=== PATIENT | female | born 1980 | race American Indian/Alaskan Native ===

== ENCOUNTER 2018-12-13 16:25 | Emergency (ER) | payer MEDICAID, OTHER ==
--- NOTE | 2018-12-13 16:31 | Emergency Department Report ---
Blank Doc - Documentation Documentation: This is a 38-year-old female that presents with constipation. Stated has decr eased activity level and history of anemia. This initial assessment/diagnostic orders/clinical plan/treatment(s) is/are subject to change based on patient's health status, clinical progression and re- assessment by fellow clinical providers in the ED. Further treatment and workup at subsequent clinical providers discretion. Patient/guardians urged not to elope from the ED as their condition may be serious if not clinically assessed and managed. Initial orders include: 1- Patient sent to [facility] for further evaluation and treatment 2- labs 3- xray
[2018-12-13 17:43] LABS: BUN/Creatinine Ratio 18; Blood Urea Nitrogen 11 mg/dL (7-17)
[2018-12-13 17:44] LABS: Calcium 8.8 mg/dL (8.4-10.2); Hemolysis Index 20
[2018-12-13 17:51] LABS: Mean Corpuscular HGB Conc 28 % (30-34); Platelet Count 404 K/mm3 (140-440); Red Blood Count 3.43 M/mm3 (3.65-5.03); Red Cell Distribution Width 19.3 % (13.2-15.2)
[2018-12-13 17:54] LABS: Hemoglobin 5.6 gm/dl (10.1-14.3)
[2018-12-13 17:55] LABS: Hematocrit 20.1 % (30.3-42.9); Mean Corpuscular Volume 59 fl (79-97)
[2018-12-13 17:56] LABS: Basophils % (Auto) 0.4 % (0.0-1.8); Eosinophils % (Auto) 0.8 % (0.0-4.3); Lymphocytes # (Auto) 1.4 K/mm3 (1.2-5.4); Monocytes # (Auto) 0.2 K/mm3 (0.0-0.8); Monocytes % (Auto) 3.5 % (0.0-7.3)
[2018-12-13] MEDS ORDERED: NACL 0.9% 500 ML 500 ML IV ONE (18:17)
--- NOTE | 2018-12-13 18:18 | Emergency Department Report ---
ED General Adult HPI - General Chief complaint: Medical Clearance Stated complaint: COUGH/CONSTIPATION Time Seen by Provider: 12/13/18 16:30 Source: patient, RN notes reviewed, old records reviewed Mode of arrival: Ambulatory Limitations: No Limitations - History of Present Illness Initial comments: This is a 38-year-old. The patient is not known to this provider previously. She does not have a local primary care doctor. She does not have a hematol ogist. Her past medical history includes hypertension, chronic anemia, gastric bypass Patient presents to the emergency room with a primary complaint of constipation. This is painless basically. Dentition present for a day or so. There is no relief with [id number] enemas. Patient denies nausea, vomiting, chest pain. She denies headache. Patient endorses secondary complaints, including dry cough, heart palpitations, feeling slightly fatigued, feels like her blood counts are low. She denies hematemesis, bright red blood per rectum, vaginal bleeding. She is taking intermittent multivitamins, not currently taking iron sulfate supplementation, and is reportedly not taking the multivitamins that are typical for patient to have a history of gastric bypass surgery. -: Gradual Severity scale (0 -10): 7 Consistency: constant Improves with: none Worsens with: none Associated Symptoms: cough, shortness of breath. denies: confusion, chest pain, diaphoresis, fever/chills, headaches, loss of appetite, malaise, seizure, syncope, weakness - Related Data Home Medications Medication Instructions Recorded Confirmed Last Taken Lisinopril/Hydrochlorothiazide 12.5 - 20 tab PO QDAY 07/19/13 01/30/16 07/19/13 19:39 [Zestoretic 20-12.5 mg] 20/12.5 mg Previous Rx's Medication Instructions Recorded Last Taken Type Ferrous Sulfate [Feosol 325 MG tab] 325 mg PO BID #60 tablet 07/20/13 Unknown Rx Folic Acid [Folvite] 1 mg PO QDAY #30 tablet 07/20/13 Unknown Rx Ciprofloxacin HCl [Ciprofloxacin 500 mg PO Q12H #10 tab 01/31/16 Unknown Rx TAB] metroNIDAZOLE [Flagyl TAB] 500 mg PO Q8HR #14 tablet 01/31/16 Unknown Rx Amlodipine Besylate [Norvasc] 5 mg PO QDAY 2 Days #30 tablet 12/13/18 Unknown Rx Cyanocobalamin (Vitamin B-12) 500 mcg PO QDAY #30 tablet 12/13/18 Unknown Rx [Vitamin B-12] Ferrous Sulfate [Feosol 325 MG tab] 325 mg PO BID #60 tablet 12/13/18 Unknown Rx Folic Acid 0.4 mg PO QDAY #30 tablet 12/13/18 Unknown Rx Lisinopril 20 mg PO QDAY #30 tablet 12/13/18 Unknown Rx Multivitamin [Multiple Vitamins] 1 each PO QDAY #30 tablet 12/13/18 Unknown Rx Psyllium Husk [Psyllium Seed] 10 gm PO BID #1 powder 12/13/18 Unknown Rx Thiamine [Vitamin B-1] 100 mg PO QDAY #30 tablet 12/13/18 Unknown Rx Allergies Allergy/AdvReac Type Severity Reaction Status Date / Time No Known Allergies Allergy Verified 07/19/13 19:39 ED Review of Systems ROS: Stated complaint: COUGH/CONSTIPATION Other details as noted in HPI Constitutional: malaise. denies: fever Eyes: denies: vision change ENT: congestion Respiratory: cough, shortness of breath Cardiovascular: palpitations. denies: chest pain Gastrointestinal: abdominal pain, constipation. denies: nausea, hematemesis, melena, hematochezia Genitourinary: denies: as per HPI, abnormal menses Skin: denies: lesions Neurological: weakness Psychiatric: denies: anxiety ED Past Medical Hx - Past Medical History Hx Hypertension: Yes Additional medical history: Anemia - Surgical History Past Surgical History?: Yes Additional Surgical History: Gastric bypass - Social History Smoking Status: Never Smoker Substance Use Type: None - Medications Home Medications: Home Medications Medication Instructions Recorded Confirmed Last Taken Type Lisinopril/Hydrochlorothiazide 12.5 - 20 tab PO QDAY 07/19/13 01/30/16 07/19/13 19:39 History [Zestoretic 20-12.5 mg] 20/12.5 mg Ferrous Sulfate [Feosol 325 MG tab] 325 mg PO BID #60 tablet 07/20/13 01/30/16 Unknown Rx Folic Acid [Folvite] 1 mg PO QDAY #30 tablet 07/20/13 01/30/16 Unknown Rx Ciprofloxacin HCl [Ciprofloxacin 500 mg PO Q12H #10 tab 01/31/16 Unknown Rx TAB] metroNIDAZOLE [Flagyl TAB] 500 mg PO Q8HR #14 tablet 01/31/16 Unknown Rx Amlodipine Besylate [Norvasc] 5 mg PO QDAY 2 Days #30 tablet 12/13/18 Unknown Rx Cyanocobalamin (Vitamin B-12) 500 mcg PO QDAY #30 tablet 12/13/18 Unknown Rx [Vitamin B-12] Ferrous Sulfate [Feosol 325 MG tab] 325 mg PO BID #60 tablet 12/13/18 Unknown Rx Folic Acid 0.4 mg PO QDAY #30 tablet 12/13/18 Unknown Rx Lisinopril 20 mg PO QDAY #30 tablet 12/13/18 Unknown Rx Multivitamin [Multiple Vitamins] 1 each PO QDAY #30 tablet 12/13/18 Unknown Rx Psyllium Husk [Psyllium Seed] 10 gm PO BID #1 powder 12/13/18 Unknown Rx Thiamine [Vitamin B-1] 100 mg PO QDAY #30 tablet 12/13/18 Unknown Rx ED Physical Exam - General Limitations: No Limitations General appearance: alert, in no apparent distress - Head Head exam: Present: atraumatic, normocephalic - Eye Eye exam: Present: normal appearance, EOMI, other (conjunctiva noted to be mildly pale). Absent: nystagmus - ENT ENT exam: Present: normal exam, normal orophraynx, mucous membranes moist, normal external ear exam - Neck Neck exam: Present: normal inspection, full ROM. Absent: tenderness, meningismus - Respiratory Respiratory exam: Present: normal lung sounds bilaterally. Absent: respiratory distress - Cardiovascular Cardiovascular Exam: Present: regular rate, normal rhythm, normal heart sounds. Absent: bradycardia, tachycardia, irregular rhythm, systolic murmur, diastolic murmur, rubs, gallop - GI/Abdominal GI/Abdominal exam: Present: soft. Absent: distended, tenderness, guarding, rebound, rigid, pulsatile mass - Extremities Exam Extremities exam: Present: normal inspection, full ROM, other (2+ pulses noted in the bilateral upper, lower extremities. Compartments soft. No long bony tenderness. The pelvis is stable.). Absent: pedal edema, joint swelling, calf tenderness - Back Exam Back exam: Present: normal inspection, full ROM. Absent: tenderness, CVA tenderness (R), paraspinal tenderness, vertebral tenderness - Neurological Exam Neurological exam: Present: alert, oriented X3, CN II-XII intact, normal gait, other (Extraocular movements intact. Tongue midline. No facial droop. Facial sensation intact to light touch in the V1, V2, V3 distribution bilaterally. 5 and 5 strength in 4 extremities.. Sensation is intact to light touch in 4 extremities.). Absent: motor sensory deficit - Psychiatric Psychiatric exam: Present: normal affect, normal mood, anxious - Skin Skin exam: Present: warm, dry, intact, normal color. Absent: rash ED Course Vital Signs 12/13/18 12/13/18 12/13/18 16:30 19:41 21:07 Temperature 98.7 F 98.5 F Pulse Rate 82 76 Respiratory 18 18 20 Rate Blood Pressure 166/87 Blood Pressure 181/82 [Right] O2 Sat by Pulse 100 100 Oximetry 12/13/18 12/13/18 12/13/18 21:15 21:40 22:37 Temperature 98.5 F 98.5 F 99.1 F Pulse Rate 78 74 62 Respiratory 20 20 18 Rate Blood Pressure 185/92 175/98 155/77 Blood Pressure 185/92 [Right] O2 Sat by Pulse 100 100 100 Oximetry 12/13/18 12/14/18 12/14/18 23:40 00:03 00:32 Temperature 99.1 F 99.2 F 98.9 F Pulse Rate 68 73 66 Respiratory 18 18 18 Rate Blood Pressure 175/84 169/73 156/92 Blood Pressure [Right] O2 Sat by Pulse 100 100 99 Oximetry - Reevaluation(s) Reevaluation #1: 12/13/18 19:25 Differential diagnosis, including but not limited to: Constipation, obstruction, symptomatic anemia, bronchitis Assessment and plan: 38-year-old female who currently does not have a primary care doctor, does not follow up with her bariatric surgeon, does not currently have a green building engineer with multiple outpatient primary care related complaints. Complaint #1; constipation. Patient is afebrile with reassuring vital signs within nontender abdomen. X-ray of her abdomen suggests nonspecific bowel gas pattern, colonic distention, questionable air-fluid levels. Suspect constipation, but given history of gastric bypass, we will obtain CT scan of the abdomen and pelvis with IV, oral contrast. Extensive discussion had with patient regarding need for diet and lifestyle modifications, fiber and water consumption, and need to follow up with an outpa tient primary care doctor, and/or her bariatric surgeon. Complaint #2; symptomatic anemia. Patient has had this in the past. She is amenable to packed red blood cell transfusion. Denies hematemesis, bright red blood per rectum, rectal bleeding. We'll give the patient 2 units of packed red blood cells. She will be discharged with iron sulfate supplementation, diet last modification instructio zach, and she will be discharged with appropriate vitamin supplementation given her history of gastric bypass. Complaint #3; bronchitis. Lung sounds are clear, x-ray chest unremarkable, supportive, symptomatic management. Does not appear to represent emergent condition at this time. Reevaluation #2: 12/13/18 19:53 Care will be transferred to the overnight physician, Dr. Martinez, to follow up on CT scan of the abdomen and pelvis. Reevaluation #3: 12/13/18 20:19 Care is transferred to Dr. Martinez to follow up on CT scan and reassess for final disposition. If constipated, oral contrast should help out with constipation symptoms. ED Medical Decision Making - Lab Data Result diagrams: 12/13/18 17:01 12/13/18 17:01 Vital Signs 12/13/18 16:30 Temperature 98.7 F Pulse Rate 82 Respiratory 18 Rate Blood Pressure 166/87 O2 Sat by Pulse 100 Oximetry Lab Results 12/13/18 12/13/18 12/13/18 Range/Units 17:01 17:01 17:01 WBC 6.5 (4.5-11.0) K/mm3 RBC 3.43 L (3.65-5.03) M/mm3 Hgb 5.6 L* (10.1-14.3) gm/dl Hct 20.1 L (30.3-42.9) % MCV 59 L (79-97) fl MCH 17 L (28-32) pg MCHC 28 L (30-34) % RDW 19.3 H (13.2-15.2) % Plt Count 404 (140-440) K/mm3 Lymph % (Auto) 21.0 (13.4-35.0) % Sac % (Auto) 3.5 (0.0-7.3) % Eos % (Auto) 0.8 (0.0-4.3) % Baso % (Auto) 0.4 (0.0-1.8) % Lymph # 1.4 (1.2-5.4) K/mm3 Sac # 0.2 (0.0-0.8) K/mm3 Eos # 0.0 (0.0-0.4) K/mm3 Baso # 0.0 (0.0-0.1) K/mm3 Seg Neutrophils % 74.3 H (40.0-70.0) % Seg Neutrophils # 4.8 (1.8-7.7) K/mm3 Sodium 138 (137-145) mmol/L Potassium 3.9 (3.6-5.0) mmol/L Chloride 102.7 (98-107) mmol/L Carbon Dioxide 24 (22-30) mmol/L Anion Gap 15 mmol/L BUN 11 (7-17) mg/dL Creatinine 0.6 L (0.7-1.2) mg/dL Estimated GFR > 60 ml/min BUN/Creatinine Ratio 18 % Glucose 90 (65-100) mg/dL Calcium 8.8 (8.4-10.2) mg/dL HCG, Qual Negative (Negative) - EKG Data -: EKG Interpreted by Me EKG shows normal: sinus rhythm Rate: normal - EKG Data 12/13/18 19:38 Sinus, 88 bpm, normal axis, QTC prolonged, atrial enlargement, or High left ventricular voltage, abnormal EKG, not having chest pain, not consistent with ST elevation myocardial infarction. - Radiology Data Radiology results: report reviewed, image reviewed interpreted by me: X-ray the chest is negative for acute disease. X-ray of the abdomen and pelvis suggests constipation, nonspecific bowel gas pattern, questionable air-fluid levels - Medical Decision Making Print Report Referring Physician: PRISCILLA VASQUEZ Patient Name: VILMA LAMAS Date of : 1980 Sex: Female Report Date: 2018-12-13 Report Status: Finalized Findings [facility] [address] [place] [address] Cat Scan Report Signed Patient: VILMA LAMAS MR#: [id number] : 1980 Acct:[id number] Age/Sex: 38 / F ADM Date: 12/13/18 Loc: ED Attending Dr: Ordering Physician: PRISCILLA VASQUEZ MD Date of Service: 12/13/18 Procedure(s): CT abdomen pelvis w con Accession Number(s): [id number] cc: PRISCILLA VASQUEZ MD PROCEDURE: CT ABDOMEN PELVIS W CON TECHNIQUE: Computerized axial tomography of the abdomen and pelvis was performed after the IV injection of iodinated nonionic contrast. CT DOSE LENGTH PRODUCT: mGycm HISTORY: constipation, hx of gastric bypass COMPARISONS: None . FINDINGS: Visualized lower thorax: No significant abnormality. Liver: Normal size and attenuation. Spleen: Normal size and attenuation. Gallbladder and biliary system: Normal. Pancreas: Normal. Adrenals: Normal. Kidneys: Normal. GI tract: There has been gastric bypass surgery. There is no bowel obstruction, colitis or enteritis. There is a large amount of stool in the colon. The appendix is normal. There is an umbilical hernia containing bowel without specific evidence of incarceration. . Lymph nodes and mesentery: Normal. Vasculature: Normal.. Bladder: Normal. Reproductive organs: Normal. Peritoneum: There is no ascites or free air, abscess or adenopathy.. Musculoskeletal structures: No significant abnormality. IMPRESSION: There has been gastric bypass surgery. There is no bowel obstruction, colitis or enteritis. There is a large amount of stool in the colon. The appendix is normal. There is an umbilical hernia containing bowel without specific evidence of incarceration. . There is no ascites or free air, abscess or adenopathy.. . This document is electronically signed by Naseem Diaz MD., December 14 2018 12:32:22 AM ET Transcribed By: CO Dictated By: NASEEM DIAZ MD Electronically Authenticated By: NASEEM DIAZ MD Signed Date/Time: 12/14/18 0034 Critical care attestation.: If time is entered above; I have spent that time in minutes in the direct care of this critically ill patient, excluding procedure time. ED Disposition Clinical Impression: Anemia, Medication refill, Constipation Disposition: DC-01 TO HOME OR SELFCARE Is pt being admited?: No Does the pt Need Aspirin: No Condition: Good Instructions: Constipation (ED), High Fiber Diet (ED), Iron Rich Diet (ED), Anemia (ED) Additional Instructions: Increased water consumption to 6 cups of water per day. Eat plenty of fruits, fibers, vegetables. Symptoms of constipation will likely take weeks to months to improve. Follow-up with a primary care doctor or your bariatric surgeon within the next 2 weeks for further evaluation and outpatient management of constipation. Take the prescribed vitamin supplementation as directed, and follow up with your primary care provider, or bariatric surgeon for outpatient nutritional management. foods high in fiber include: Fruits Apple (with skin) 3.5/1 medium-sized apple Apricot (fresh) 1.8/3 apricots Banana 2.5/1 banana Cantaloupe 2.7/half edible portion Dates 13.5/1 cup (chopped) Grapefruit 1.6/half edible portion Grapes 2.6/10 grapes Oranges 2.6/[address] [place] (with skin) 2.1/1 peach Pear (with skin) 4.6/1 pear Pineapple 2.2/1 cup (diced) Prunes 11.9/11 dried prunes Raisins 2.2/packet Strawberries 3.0/1 cup Juices Apple 0.74/1 cup Grapefruit 1.0/1 cup Grape 1.3/1 cup [place] 1.0/1 cup Vegetables Cooked Asparagus 1.5/7 lucas Beans, string, green 3.4/1 cup Broccoli 5.0/1 stalk [place] sprouts 4.6/7-8 sprouts Cabbage 2.9/1 cup (cooked) Carrots 4.6/1 cup Cauliflower 2.1/1 cup Peas 7.2/1 cup (cooked) Potato (with skin) 2.3/1 boiled Spinach 4.1/1 cup (raw) Squash, summer 3.4/1 cup (cooked, diced) Sweet potatoes 2.7/1 baked Zucchini 4.2/1 cup (cooked, diced) Raw [place] 0.2/6-8 slices with skin Lettuce 2.0/1 wedge iceberg Mushrooms 0.8/half cup (sliced) Onions 1.3/1 cup Peppers, green 1.0/1 pod Tomato 1.8/1 tomato Spinach 8.0/1 cup (chopped) Legumes Baked beans 18.6/1 cup Dried peas 4.7/half cup (cooked) Kidney beans 7.4/half cup (cooked) [place] beans 2.6/half cup (cooked) Lentils 1.9/half cup (cooked) Breads, pastas, and flours Bagels 1.1/half bagel Bran muffins 6.3/muffin Cracked wheat 4.1/slice Oatmeal 5.3/1 cup Pumpernickel bread 1.0/slice White bread 0.55/slice Whole-wheat bread 1.66/slice Pasta and rice cooked Macaroni 1.0/1 cup (cooked) Rice, brown 2.4/1 cup (cooked) Rice, polished 0.6/1 cup (cooked) Spaghetti (regular) 1.0/1 cup (cooked) Flours and grains Bran, oat 8.3/oz Bran, wheat 12.4/oz Rolled oats 13.7/1 cup (cooked) Nuts Almonds 3.6/half cup (slivered) Peanuts 11.7/1 cup Take iron sulfate supplementation as directed, and follow up with the primary care doctor, or hematology doctor for evaluation for outpatient iron transfusions. one local coding support specialist is Dr. Hoffman Please return to the emergency room right away with new, worse or different symptoms, productive vomiting, change in mental status, confusion, new, worsening or different symptoms. Prescriptions: Ferrous Sulfate [Feosol 325 MG tab] 325 mg PO BID #60 tablet Folic Acid 0.4 mg PO QDAY #30 tablet Lisinopril 20 mg PO QDAY #30 tablet Multivitamin [Multiple Vitamins] 1 each PO QDAY #30 tablet Amlodipine Besylate [Norvasc] 5 mg PO QDAY 2 Days #30 tablet Psyllium Husk [Psyllium Seed] 10 gm PO BID #1 powder Thiamine [Vitamin B-1] 100 mg PO QDAY #30 tablet Cyanocobalamin (Vitamin B-12) [Vitamin B-12] 500 mcg PO QDAY #30 tablet Referrals: SUPA WAITE MD [Staff Physician] - 3-5 Days [facility] [Provider Group] - 3-5 Days CATHIE HOFFMAN MD [Staff Physician] - 3-5 Days
[2018-12-13] MEDS ORDERED: NACL 0.9% 1000 ML 1,000 ML ONE (21:04)
--- NOTE | 2018-12-13 21:39 | XRay Report ---
PROCEDURE: XR ABD SERIES W CXR 1V TECHNIQUE: Abdominal series with frontal view of the chest HISTORY: abd pain with cough COMPARISONS: FINDINGS: No focal pulmonary infiltrate identified. No pleural fluid collections seen. Cardiac and mediastinal contours are within normal limits. There is fluid level noted within the right colon. There are seen scattered nondistended small bowel loops. No significant small bowel distention identified. No signs for free air. IMPRESSION: Nonspecific bowel gas pattern.. This document is electronically signed by Shoaib Arriaza MD., December 13 2018 09:36:52 PM ET
--- NOTE | 2018-12-14 00:34 | Cat Scan Report ---
PROCEDURE: CT ABDOMEN PELVIS W CON TECHNIQUE: Computerized axial tomography of the abdomen and pelvis was performed after the IV inject ion of iodinated nonionic contrast. CT DOSE LENGTH PRODUCT: mGycm HISTORY: constipation, hx of gastric bypass COMPARISONS: None . FINDINGS: Visualized lower thorax: No significant abnormality. Liver: Normal size and attenuation. Spleen: Normal size and attenuation. Gallbladder and biliary system: Normal. Pancreas: Normal. Adrenals: Normal. Kidneys: Normal. GI tract: There has been gastric bypass surgery. There is no bowel obstruction, colitis or enteritis . There is a large amount of stool in the colon. The appendix is normal. There is an umbilical hernia containing bowel without specific evidence of incarceration. . Lymph nodes and mesentery: Normal. Vasculature: Normal.. Bladder: Normal. Reproductive organs: Normal. Peritoneum: There is no ascites or free air, abscess or adenopathy.. Musculoskeletal structures: No significant abnormality. IMPRESSION: There has been gastric bypass surgery. There is no bowel obstruction, colitis or enteritis. There is a large amount of stool in the colon. The appendix is normal. There is an umbilical hernia containing bowel without specific evidence of incarceration. . There is no ascites or free air, abscess or adenopathy.. . This document is electronically signed by Naseem Aragon MD., December 14 2018 12:32:22 AM ET
[2018-12-14 00:47] VITALS: BP 156/92
== END 2018-12-14 01:03 | disposition home or self-care (01) ==
LOC: ED 16:25
DX: K59.00 Constipation, unspecified (principal); R05 Cough; R00.2 Palpitations; D64.9 Anemia, unspecified; I10 Essential (primary) hypertension; Z76.0 Encounter for issue of repeat prescription; Z79.899 Other long term (current) drug therapy
CPT/HCPCS: 36415; 36430; 74022; 74177; 80048; 84703; 85025; 86850; 86900; 86901; 86920; 93005; 93010; 99284; J7030; P9016; Q9967

== ENCOUNTER 2022-02-11 21:22 | Emergency (ER) | payer OTHER ==
[2022-02-11 22:02] VITALS: BP 155/83
[2022-02-12] MEDS ORDERED: KETOROLAC 60 MG/2 ML INJ IM ONE (04:19)
--- NOTE | 2022-02-12 04:21 | Emergency Department Report ---
ED Headache HPI - General Chief Complaint: Headache Stated Complaint: HEADACHE/COLD SWEATS Time Seen by Provider: 02/12/22 04:18 Source: patient - History of Present Illness Initial Comments: Patient c/o severe headache x3 days. On ABT for a tooth infection Timing/Duration: 1 hour Quality: mild Recent Head Trauma: no recent headache/trauma Modifying Factors: improves with: cold therapy Associated Symptoms: denies symptoms Allergies/Adverse Reactions: Allergies No Known Allergies Allergy (Verified 07/19/13 19:39) Home Medications: Ambulatory Orders Lisinopril/Hydrochlorothiazide [Zestoretic 20-12.5 mg] 12.5 - 20 tab PO QDAY 07/19/13 Ferrous Sulfate [Feosol 325 MG tab] 325 mg PO BID #60 tablet 07/20/13 Folic Acid [Folvite] 1 mg PO QDAY #30 tablet 07/20/13 Ciprofloxacin HCl [Ciprofloxacin TAB] 500 mg PO Q12H #10 tab 01/31/16 metroNIDAZOLE [Flagyl TAB] 500 mg PO Q8HR #14 tablet 01/31/16 Amlodipine Besylate [Norvasc] 5 mg PO QDAY 2 Days #30 tablet 12/13/18 Cyanocobalamin (Vitamin B-12) [Vitamin B-12] 500 mcg PO QDAY #30 tablet 12/13/18 Ferrous Sulfate [Feosol 325 MG tab] 325 mg PO BID #60 tablet 12/13/18 Folic Acid 0.4 mg PO QDAY #30 tablet 12/13/18 Multivitamin [Multiple Vitamins] 1 each PO QDAY #30 tablet 12/13/18 Psyllium Husk [Psyllium Seed] 10 gm PO BID #1 powder 12/13/18 Thiamine [Vitamin B-1] 100 mg PO QDAY #30 tablet 12/13/18 lisinopriL [Lisinopril] 20 mg PO QDAY #30 tablet 12/13/18 Ketorolac [Toradol] 10 mg PO Q6H PRN #10 02/12/22 ED Review of Systems ROS: Stated complaint: HEADACHE/COLD SWEATS Other details as noted in HPI Constitutional: denies: chills, fever Eyes: denies: eye pain, eye discharge, vision change ENT: denies: ear pain, throat pain Respiratory: denies: cough, shortness of breath, wheezing Cardiovascular: denies: chest pain, palpitations Endocrine: no symptoms reported Gastrointestinal: denies: abdominal pain, nausea, diarrhea Genitourinary: denies: urgency, dysuria, discharge Musculoskeletal: denies: back pain, joint swelling, arthralgia Skin: denies: rash, lesions Neurological: denies: headache, weakness, paresthesias Psychiatric: denies: anxiety, depression Hematological/Lymphatic: denies: easy bleeding, easy bruising ED Past Medical Hx - Past Medical History Hx Hypertension: Yes Additional medical history: Anemia - Surgical History Additional Surgical History: Gastric bypass - Social History Smoking Status: Never Smoker Substance Use Type: None - Medications Home Medications: Home Medications Medication Instructions Recorded Confirmed Last Taken Type Lisinopril/Hydrochlorothiazide 12.5 - 20 tab PO QDAY 07/19/13 01/30/16 07/19/13 19:39 History [Zestoretic 20-12.5 mg] 20/12.5 mg Ferrous Sulfate [Feosol 325 MG tab] 325 mg PO BID #60 tablet 07/20/13 01/30/16 Unknown Rx Folic Acid [Folvite] 1 mg PO QDAY #30 tablet 07/20/13 01/30/16 Unknown Rx Ciprofloxacin HCl [Ciprofloxacin 500 mg PO Q12H #10 tab 01/31/16 Unknown Rx TAB] metroNIDAZOLE [Flagyl TAB] 500 mg PO Q8HR #14 tablet 01/31/16 Unknown Rx Amlodipine Besylate [Norvasc] 5 mg PO QDAY 2 Days #30 tablet 12/13/18 Unknown Rx Cyanocobalamin (Vitamin B-12) 500 mcg PO QDAY #30 tablet 12/13/18 Unknown Rx [Vitamin B-12] Ferrous Sulfate [Feosol 325 MG tab] 325 mg PO BID #60 tablet 12/13/18 Unknown Rx Folic Acid 0.4 mg PO QDAY #30 tablet 12/13/18 Unknown Rx Multivitamin [Multiple Vitamins] 1 each PO QDAY #30 tablet 12/13/18 Unknown Rx Psyllium Husk [Psyllium Seed] 10 gm PO BID #1 powder 12/13/18 Unknown Rx Thiamine [Vitamin B-1] 100 mg PO QDAY #30 tablet 12/13/18 Unknown Rx lisinopriL [Lisinopril] 20 mg PO QDAY #30 tablet 12/13/18 Unknown Rx Ketorolac [Toradol] 10 mg PO Q6H PRN #10 05/20/22 Unknown Rx ED Physical Exam - General Limitations: No Limitations General appearance: alert, in no apparent distress - Head Head exam: Present: atraumatic, normocephalic - Eye Eye exam: Present: normal appearance - ENT ENT exam: Present: mucous membranes moist - Neck Neck exam: Present: normal inspection - Respiratory Respiratory exam: Present: normal lung sounds bilaterally. Absent: respiratory distress - Cardiovascular Cardiovascular Exam: Present: regular rate, normal rhythm. Absent: systolic murmur, diastolic murmur, rubs, gallop - GI/Abdominal GI/Abdominal exam: Present: soft, normal bowel sounds - Extremities Exam Extremities exam: Present: normal inspection - Back Exam Back exam: Present: normal inspection - Neurological Exam Neurological exam: Present: alert, oriented X3 - Psychiatric Psychiatric exam: Present: normal affect, normal mood - Skin Skin exam: Present: warm, dry, intact, normal color. Absent: rash ED Course Vital Signs 02/11/22 22:01 Temperature 98.9 F Pulse Rate 85 Respiratory 20 Rate Blood Pressure 155/83 O2 Sat by Pulse 100 Oximetry Critical care attestation.: If time is entered above; I have spent that time in minutes in the direct care of this critically ill patient, excluding procedure time. ED Disposition Clinical Impression: Tooth pain, Headache Disposition: 01 HOME / SELF CARE / HOMELESS Is pt being admited?: No Does the pt Need Aspirin: No Condition: Stable Instructions: Acute Pain, Adult Prescriptions: Ketorolac [Toradol] 10 mg PO Q6H PRN #10 PRN Reason: Pain
== END 2022-02-12 06:00 | disposition home or self-care (01) ==
LOC: ED 21:22
DX: R51.9 Headache, unspecified (principal); K08.89 Other specified disorders of teeth and supporting structures; I10 Essential (primary) hypertension; D64.9 Anemia, unspecified; Z98.890 Other specified postprocedural states
CPT/HCPCS: 96372; 99282; J1885

== ENCOUNTER → 2022-06-17 | Outpatient (CLI) | payer OTHER | END | disposition home or self-care (01) | LOC: SLR 11:00 | PROVIDERS: ATTEND Specialist | DX: G47.33 Obstructive sleep apnea (adult) (pediatric) (principal) | CPT/HCPCS: 95811 ==